=== PATIENT | female | born 1985 | race American Indian/Alaskan Native ===

== ENCOUNTER 2021-11-27 14:29 | Emergency (ER) | payer BC, OTHER ==
[2021-11-27 14:54] VITALS: BP 135/84; PULSE 68
== END 2021-11-27 15:56 | disposition home or self-care (01) ==
LOC: DL.ED 14:29
DX: S90.861A Insect bite (nonvenomous), right foot, initial encounter (principal); L03.116 Cellulitis of left lower limb; Z91.013 Allergy to seafood; Z88.2 Allergy status to sulfonamides; Z91.030 Bee allergy status; W57.XXXA Bitten or stung by nonvenomous insect and other nonvenomous arthropods, initial encounter
CPT/HCPCS: 99282; 99283